=== PATIENT | female | born 1955 | race Caucasian/White ===

== ENCOUNTER → 2016-12-22 | Outpatient (CLI) | payer OTHER ==
[~2016-12-22] MED LIST: BACTRIM,SEPT1 TABLET PO; BACTROBAN OINTM22 GM TP; CARDIZEM120 MG PO; CIPRO500 MG PO; DIGITEK250 MC2 PO; EFFEXOR XR150 MG PO; ELAVIL25 MG PO; GLIPIZIDE5 MG PO; GLUCOPHAGE XR1000 MG PO; GLUCOPHAGE1000 MG PO; HYDROCODON-ACE1 EAC7 PO; IBUPROFEN800 MG PO; LANOXIN,DIGIT0.25 MG PO; LIPITOR80 MG PO; MOTRIN600 MG PO; NEXIUM20 MG PO; NEXIUM40 MG PO; NORCO 7.5/321 TABLET PO; NORVASC5 MG PO; PROAIR HFA8.5 GM IH; PROVENTIL,2.5 MG/3 M IH
== END | disposition home or self-care (01) ==
LOC: RAD 09:52
DX: N28.1 Cyst of kidney, acquired (principal)
CPT/HCPCS: 76770

== ENCOUNTER 2017-04-22 14:08 | Emergency (ER) | payer OTHER ==
[~2017-04-22] VITALS: Ht 167.6 cm; Wt 69.9 kg
[2017-04-22] MEDS ORDERED: NAPROSYN500 MG PO (16:55)
[2017-04-22 17:39] VITALS: BP 125/80
== END 2017-04-22 17:40 | disposition home or self-care (01) ==
LOC: EME 14:08
PROC: 2W3EX1Z Immobilization of Right Hand using Splint (ICD-10-PCS; principal; 2017-04-22)
DX: M79.641 Pain in right hand (principal); M79.631 Pain in right forearm; Z86.711 Personal history of pulmonary embolism; I10 Essential (primary) hypertension; E11.9 Type 2 diabetes mellitus without complications; Z79.84 Long term (current) use of oral hypoglycemic drugs; F17.200 Nicotine dependence, unspecified, uncomplicated
CPT/HCPCS: 73130; 93971; 99281; 99283